=== PATIENT | male | born 1990 | race Caucasian/White ===

== ENCOUNTER 2016-12-27 06:01 | Emergency (ER) | payer BC, OTHER ==
[2016-12-27 06:12] VITALS: BP 147/85; PULSE 88; RESP 20; TEMP 99.3
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
[2016-12-27] MEDS ORDERED: ACET/COD 300 MG/30 MG STARTER PACK 6 TAB BTL PO STA (09:26)
== END 2016-12-27 09:44 | disposition home or self-care (01) ==
LOC: EC 06:01
DX: S09.90XA Unspecified injury of head, initial encounter (principal); K02.9 Dental caries, unspecified; R40.2142 Coma scale, eyes open, spontaneous, at arrival to emergency department; R40.2252 Coma scale, best verbal response, oriented, at arrival to emergency department; R40.2362 Coma scale, best motor response, obeys commands, at arrival to emergency department; Z79.899 Other long term (current) drug therapy; V48.5XXA Car driver injured in noncollision transport accident in traffic accident, initial encounter
CPT/HCPCS: 70450; 70486; 99284

== ENCOUNTER 2017-06-26 21:57 | Emergency (ER) | payer BC, OTHER ==
[2017-06-26 22:06] VITALS: BP 144/81; PULSE 69; RESP 18; TEMP 97.7
--- NOTE | 2017-06-26 22:32 | ED ---
ENT HPI - General Chief complaint: Dental/Oral Stated complaint: Dental Time Seen by Provider: 06/26/17 22:18 Source: patient, RN notes reviewed Mode of arrival: ambulatory Limitations: no limitations - History of Present Illness Initial comments: This is a 27-year-old male who presents to the emergency department with chief complaint of dental pain. Patient states that he had a tooth removed 2 weeks ago by the dentist but could not afford to have a second tooth removed. He states that last Monday he developed pain in the tooth that he did not have extracted. Patient states pain is in the right upper molars. Denies any active drainage. Patient states he was prescribed penicillin 2 days ago but it does not seem to be helping. Denies radiation of pain to the neck. Denies fevers or chills. Denies chest pain or shortness of breath, abdominal pain, nausea or vomiting, dizziness or headache. - Related Data Home Medications Medication Instructions Recorded Confirmed Citalopram Hydrobromide [CeleXA] 40 mg PO HS 06/26/17 06/26/17 Ibuprofen [Motrin] 800 mg PO Q6H PRN 06/26/17 06/26/17 Previous Rx's Medication Instructions Recorded Ibuprofen 600 mg PO Q6HR #20 tablet 06/26/17 Allergies Allergy/AdvReac Type Severity Reaction Status Date / Time No Known Allergies Allergy Verified 06/26/17 22:09 Review of Systems ROS Statement: Those systems with pertinent positive or pertinent negative responses have been documented in the HPI. ROS Other: All systems not noted in ROS Statement are negative. Past Medical History Past Medical History: No Reported History History of Any Multi-Drug Resistant Organisms: MRSA Date of last positivie culture/infection: 2011 MDRO Source:: arms Past Surgical History: No Surgical Hx Reported Past Psychological History: Anxiety, Depression Smoking Status: Never smoker Past Alcohol Use History: Rare Past Drug Use History: None Reported General Exam - General Exam Comments Initial Comments: General: Awake and alert, well-developed; in no apparent distress. Does not appear acutely ill. HEENT: Head atraumatic, normocephalic. Pupils are equal, round and reactive to light. Extraocular movements intact. Oropharynx moist without erythema or exudate. Patient is missing crown of tooth #3. This area is tender on palpation. No masses or areas of fluctuance noted. No active drainage. Neck: Supple. Normal ROM. Cardiovascular: Regular rate and rhythm. No murmurs, rubs or gallops. Chest symmetrical. Respiratory: Lungs clear to auscultation bilaterally. No wheezes, rales or rhonchi. Normal respiratory effort with no use of accessory muscles. Musculoskeletal: Normal ROM, no tenderness bilateral upper and lower extremities. Ambulating normally. Skin: [place], warm and dry without rashes or lesions. Neurological: Alert and oriented x3. CN II-XII grossly intact. Speech is fluent and answers are appropriate. No focal neuro deficits. Psychiatric: Normal mood and affect. No overt signs of depression or anxiety noted. Limitations: no limitations Course Vital Signs 06/26/17 22:04 Temperature 97.7 F Pulse Rate 69 Respiratory 18 Rate Blood Pressure 144/81 O2 Sat by Pulse 99 Oximetry Medical Decision Making - Medical Decision Making This is a 27-year-old male who presents to the emergency department with chief complaint of dental pain. Patient complains of pain in the right upper molars. He has been taking penicillin for the past 2 days. I recommended continuing this antibiotic and finishing the full course. No abscesses on physical examination. Vital signs are stable and patient is in no acute distress. He will be given a prescription for ibuprofen. Patient does have dental coverage through his insurance so I recommended contacting his insurance company to find out which dentists accept his insurance in order to have the tooth extracted. Patient is in agreement with plan and voices understanding. He will be discharged at this time. All questions answered. Disposition Clinical Impression: Toothache Disposition: HOME SELF-CARE Condition: Good Instructions: Toothache (ED) Additional Instructions: Please continue taking antibiotics as prescribed. Please take ibuprofen as prescribed. Please follow up with primary care provider within 1-2 days. Return to emergency department if symptoms should worsen or any concerns arise. Prescriptions: Ibuprofen 600 mg PO Q6HR #20 tablet Is patient prescribed a controlled substance at d/c from ED?: No Referrals: None,Stated [Primary Care Provider] - 1-2 days Time of Disposition: 22:31
== END 2017-06-26 22:34 | disposition home or self-care (01) ==
LOC: EC 21:57
DX: K08.89 Other specified disorders of teeth and supporting structures (principal); F32.9 Major depressive disorder, single episode, unspecified; Z79.899 Other long term (current) drug therapy; Z86.14 Personal history of Methicillin resistant Staphylococcus aureus infection
CPT/HCPCS: 99282